=== PATIENT | male | born 1985 | race Caucasian/White ===

== ENCOUNTER 2020-10-30 09:52 | Emergency (ER) | payer OTHER ==
[~2020-10-30] VITALS: Ht 180.3 cm; Wt 113.4 kg
[2020-10-30] MEDS ORDERED: NEURONTIN100 MG PO (10:04)
[2020-10-30] MEDS ORDERED: NAPROSYN500 M1 PO (10:04)
--- NOTE | 2020-10-30 10:23 | EKG ---
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[facility] : 1985 Requested By: Rox Ricardo Order Number: [id number] MD: Max Daigle Measurements Intervals [place] Rate: 79 P: -15 [place]: 194 QRS: 11 QRSD: 89 T: 8 QT: 375 QTc: 430 Interpretive Statements Sinus rhythm Left atrial enlargement Abnormal T, consider ischemia, lateral leads Minimal ST elevation, consider early repolarization No previous ECG available for comparison Electronically Signed On 10-30-2020 10:23:34 CDT by Mxa Daigle [email or web address] <ELECTRONICALLY SIGNED> By: Max Daigle MD, [facility] 10/30/20 1023 0957 0957 Max Daigle MD, [facility] /EPI
[2020-10-30 10:38] LABS: ABSOLUTE BASOPHILS 0.1 thou/uL (0.0-0.2); ABSOLUTE EOSINOPHILS 0.2 thou/uL (0.0-0.7); ABSOLUTE LYMPHOCYTES 1.9 thou/uL (0.8-5.3); ABSOLUTE MONOCYTES 0.5 thou/uL (0.0-1.2); ABSOLUTE NEUTROPHILS 3.8 thou/uL (1.6-8.1); BASOPHILS 1.1 %; EOSINOPHILS 2.5 %; HEMATOCRIT 42.7 % (42.0-52.0); HEMOGLOBIN 14.9 gm/dL (14.0-18.0); LYMPHOCYTES 29.1 %; MCHC 34.9 g/dL (28.0-37.0); MCV 91.8 fL (80.0-100.0); MONOCYTES 7.3 %; MPV 8.8 fl. (7.2-11.1); NUCLEATED RBCS 0 /100WBC; PLATELET COUNT* 224 thou/uL (150-400); RBC 4.65 mil/uL (4.50-6.00); RDW-CV 13.5 % (10.5-14.5); WBC 6.4 thou/uL (4.0-11.0)
[2020-10-30 10:52] LABS: CALCIUM 8.3 mg/dL (8.5-10.1); POTASSIUM 3.6 mmol/L (3.5-5.1)
[2020-10-30 10:55] LABS: ALBUMIN 4.3 g/dL (3.4-5.0); TOTAL BILIRUBIN 0.4 mg/dL (<0.1-1.0); TOTAL PROTEIN 7.2 g/dL (6.4-8.2)
[2020-10-30] MEDS ORDERED: MEDROLDOSEPACK PO (11:56)
[2020-10-30] MEDS ORDERED: PROAIR HFA8.5 GM INH (11:56)
[2020-10-30] MEDS ORDERED: FLEXERIL PO (11:56)
[2020-10-30 12:38] VITALS: BP 135/84
== END 2020-10-30 12:39 | disposition home or self-care (01) ==
LOC: M.ERS 09:52
PROVIDERS: Physician Assistant
DX: R07.89 Other chest pain (principal); Z20.822 Contact with and (suspected) exposure to COVID-19; I10 Essential (primary) hypertension; F17.210 Nicotine dependence, cigarettes, uncomplicated